=== PATIENT | female | born 1940 | race Caucasian/White ===

== ENCOUNTER → 2023-08-12 11:12 | Outpatient (REF) | payer OTHER, SELFPAY | LOC: PAVMRI 11:12 | PROVIDERS: ATTENDING PHYSICIAN Internal Medicine; REFERRING PHYSICIAN Psychiatry & Neurology Neurology | DX: M19.90 Unspecified osteoarthritis, unspecified site (principal); M25.60 Stiffness of unspecified joint, not elsewhere classified | CPT/HCPCS: 72148 ==

== ENCOUNTER → 2023-09-16 11:25 | Outpatient (REF) | payer OTHER, SELFPAY | LOC: HWWDC 11:25 | PROVIDERS: ATTENDING PHYSICIAN Internal Medicine | DX: Z12.31 Encounter for screening mammogram for malignant neoplasm of breast (principal) | CPT/HCPCS: 77063; 77067 ==

== ENCOUNTER → 2023-11-18 09:11 | Outpatient (REF) | payer OTHER, SELFPAY ==
[2023-11-18 12:44] LABS: Glycohemoglobin (HgbA1c) 6.3 % (4.0-5.6)
[2023-11-18 12:45] LABS: ALT (SGPT) 31 U/L (0-35); AST (SGOT) 32 U/L (14-36); Albumin 4.1 g/dl (3.5-5.0); Alkaline Phosphatase 116 U/L (38-126); Blood Urea Nitrogen 19 mg/dl (7-17); Calcium 9.9 mg/dl (8.4-10.2); Carbon Dioxide 25 mmol/L (22-30); Chloride 105 mmol/L (98-107); Glucose 150 mg/dl (70-99); HDL Cholesterol 43 mg/dl; LDL Cholesterol, Calculated 75 mg/dl; Potassium 3.8 mmol/L (3.5-5.1); Sodium 140 mmol/L (135-145); Total Cholesterol 145 mg/dl (50-199); Total Protein 7.1 g/dl (6.3-8.2); Triglyceride 137 mg/dl (10-149); Very Low Density Lipoprotein 27 mg/dl (0-30); eGFR > 60.00
== END ==
LOC: HWLAB 09:11
PROVIDERS: ATTENDING PHYSICIAN Internal Medicine
DX: R73.01 Impaired fasting glucose (principal); E78.5 Hyperlipidemia, unspecified; K76.0 Fatty (change of) liver, not elsewhere classified
CPT/HCPCS: 36415; 80053; 80061; 83036

== ENCOUNTER → 2024-08-06 10:03 | Outpatient (REF) | payer OTHER, SELFPAY ==
[2024-08-06 12:47] LABS: % Basophils 0.7 % (0-2); % Eosinophils 3.7 % (0-6); % Immature Granulocytes 0.3 % (0-0.5); % Lymphocytes 22.5 % (20.5-51.1); % Monocytes 9.7 % (1.7-9.3); % Neutrophils 63.1 % (42.2-75.2); Absolute Basophils 0.1 10^3/uL (0-0.2); Absolute Eosinophils 0.3 10^3/uL (0-0.7); Absolute Lymphocytes 1.7 10^3/uL (1.2-3.4); Absolute Monocytes 0.7 10^3/uL (0.1-0.6); Absolute Neutrophils 4.8 10^3/uL (1.4-6.5); Hematocrit 43.9 % (37.0-47.0); Hemoglobin 14.3 g/dL (12.0-16.0); Mean Corp Hgb Conc. 32.6 g/dL (33.0-37.0); Mean Corpuscular Hgb 28.9 pg (27.0-31.0); Mean Corpuscular Volume 88.7 fL (81.0-99.0); Mean Platelet Volume 10.4 fL (7.4-10.4); Nucleated Red Blood Cells % 0 %; Platelet Count 286 10^3/uL (130-400); Red Blood Cell Count 4.95 10^6/uL (4.20-5.40); Red Cell Dist. Width 12.6 % (11.5-14.5); White Blood Cell Count 7.6 10^3/uL (4.8-10.8)
[2024-08-06 13:13] LABS: ALT (SGPT) 45 U/L (0-35); AST (SGOT) 36 U/L (14-36); Albumin 4.2 g/dl (3.5-5.0); Alkaline Phosphatase 124 U/L (38-126); Blood Urea Nitrogen 20 mg/dl (7-17); Calcium 9.3 mg/dl (8.4-10.2); Carbon Dioxide 24 mmol/L (22-30); Chloride 105 mmol/L (98-107); Glucose 133 mg/dl (70-99); HDL Cholesterol 39 mg/dl; LDL Cholesterol, Calculated 93 mg/dl; Potassium 4.3 mmol/L (3.5-5.1); Sodium 138 mmol/L (135-145); Total Bilirubin 0.7 mg/dl (0.2-1.3); Total Cholesterol 156 mg/dl (50-199); Total Protein 6.8 g/dl (6.3-8.2); Triglyceride 123 mg/dl (10-149); Very Low Density Lipoprotein 24 mg/dl (0-30); eGFR > 60.00
[2024-08-06 14:24] LABS: Glycohemoglobin (HgbA1c) 6.6 % (4.0-5.6)
== END ==
LOC: HWLAB 10:03
PROVIDERS: ATTENDING PHYSICIAN Internal Medicine
DX: E78.5 Hyperlipidemia, unspecified (principal); K21.9 Gastro-esophageal reflux disease without esophagitis; R73.01 Impaired fasting glucose
CPT/HCPCS: 36415; 80053; 80061; 83036; 85025

== ENCOUNTER → 2024-09-16 10:02 | Outpatient (REF) | payer OTHER, SELFPAY | LOC: HWWDC 10:02 | PROVIDERS: ATTENDING PHYSICIAN Internal Medicine | DX: Z12.31 Encounter for screening mammogram for malignant neoplasm of breast (principal) | CPT/HCPCS: 77063; 77067 ==

== ENCOUNTER 2024-12-06 18:06 | Inpatient (IN) | payer OTHER, SELFPAY ==
[2024-12-06] VITALS (17 sets, daily range): BP systolic 92–154; BP diastolic 42–75; BMI 32.2
[2024-12-06 16:12] LABS: % Basophils 0.4 % (0-2); % Immature Granulocytes 1.2 % (0-0.5); % Lymphocytes 16.3 % (20.5-51.1); % Monocytes 7.7 % (1.7-9.3); % Neutrophils 73.4 % (42.2-75.2); Absolute Basophils 0.1 10^3/uL (0-0.2); Absolute Eosinophils 0.1 10^3/uL (0-0.7); Absolute Immature Granulocytes 0.2 10^3/uL (0-0.05); Absolute Lymphocytes 2.1 10^3/uL (1.2-3.4); Absolute Neutrophils 9.2 10^3/uL (1.4-6.5); Hematocrit 42.6 % (37.0-47.0); Hemoglobin 14.4 g/dL (12.0-16.0); Mean Corp Hgb Conc. 33.8 g/dL (33.0-37.0); Mean Corpuscular Hgb 30.1 pg (27.0-31.0); Mean Corpuscular Volume 88.9 fL (81.0-99.0); Mean Platelet Volume 9.8 fL (7.4-10.4); Nucleated Red Blood Cells % 0 %; Platelet Count 230 10^3/uL (130-400); Red Blood Cell Count 4.79 10^6/uL (4.20-5.40); Red Cell Dist. Width 12.6 % (11.5-14.5); White Blood Cell Count 12.6 10^3/uL (4.8-10.8)
[2024-12-06 16:33] LABS: ALT (SGPT) 46 U/L (0-35); AST (SGOT) 39 U/L (14-36); Albumin 4.2 g/dl (3.5-5.0); Alkaline Phosphatase 120 U/L (38-126); Blood Urea Nitrogen 21 mg/dl (7-17); Carbon Dioxide 24 mmol/L (22-30); Chloride 108 mmol/L (98-107); Estimated Creatinine Clearance 71 ml/min; Glucose 155 mg/dl (70-99); Potassium 4.1 mmol/L (3.5-5.1); Sodium 139 mmol/L (135-145); Total Bilirubin 0.7 mg/dl (0.2-1.3); eGFR > 60.00
[2024-12-06] MEDS: ZOFRAN 4 MG IV (17:10)
[2024-12-06] MEDS: MORPHINE SULFATE 4 MG IV (17:16)
--- NOTE | 2024-12-06 17:23 | ED.GENMED ---
History of Present Illness
General
Chief Complaint: Fall
Source: patient
Exam Limitations: none
Time Seen by Provider: 12/06/24 16:22
Nursing documentation reviewed up to this point in time: agreed with
History of Present Illness
History of Present Illness:
83-year-old female past history of hypertension hyperlipidemia presenting to the emergency department today with concerns of right hip pain after a fall from standing where she got tripped up and hit her right hip directly. Denies any her head no
loss of consciousness not on blood thinners. Denies any numbness weakness or additional concerns otherwise.
Review of Systems
Review of Systems
Allergies reviewed?: Yes
All Other Systems: ROS reviewed and negative except as documented in HPI and ROS
Phy Exam
Physical Exam
Physical Exam:
GENERAL: Alert , in no apparent distress
EYE: pupils equal and reactive
NECK: Supple, no significant adenopathy.
ENT: o/p clr, mmm.
CARDIAC: Regular rate and rhythm .
LUNGS: Clear breath sounds bilaterally, no acute respiratory distress, no wheezes/rales/rhonchi
ABDOMEN: Soft, without focal tenderness, no r/g, no cvat
NEUROLOGICAL: Alert and oriented, no focal neuro deficits
SKIN: Warm and dry, skin intact.
MUSCULOSKELETAL: Discomfort to the right hip unwilling to move at the hip able to move well at the ankle. Unwilling to bend the knee secondary to movement at the hip. No significant redness swelling or warmth, well perfused.
PSYCH: Normal and appropriate interaction.
Course
Orders/Labs/Results
Orders:
Orders
12/06/24 16:03
Type And Crossmatch [Type+Screen] Urgent
Complete Blood Count/With Diff Urgent
Comprehensive Metabolic Panel Urgent
12/06/24 16:04
Hip, Right 2-3 Views [CR Hip - RT w/wo Pel 2-3 Vw*] Urgent
Comment:
Reason For Exam: FALL, RIGHT HIP PAIN
Include a pelvis x-ray?: Yes
12/06/24 17:03
Morphine Sulfate 4 mg IV NOW STA
Ondansetron Injectable [Zofran] 4 mg IV NOW STA
12/06/24 17:21
EKG [Electrocardiogram (*1)] Urgent
Reason for Study: PreOp
12/06/24 17:23
EKG- Treatment ONCE
12/06/24 17:39
Admit/Transfer Patient As Directed
Co-Sign Provider:
Level of Care: Inpatient admission
Assign to:: Medical/Surgical
Physician / Group: Talib Meadows
Diagnosis: Right hip fracture
Reason for Hospitalization: Right hip fracture
Expected length of stay greater than two midnights?: Yes
ELOS- Estimated Length of Stay in days: 2
I certify the patient meets the requirements for IP care: Yes
PRN Pain Medication Management As Directed
May give lesser potent ordered pain med per pt: Yes
preference::
Protocol:: Medication orders for pain may be administered in a
manner that supports deferring to patient preference
when the pt is:
- Requesting an ordered lesser potent pain medication.
Least to most potent pain medications are defined
as: acetaminophen < NSAID < tramadol < opioids
(morphine, oxycodone, hydromorphone).
- Requesting a lesser dose of the same medication IF
ORDERED.
- Requesting a less intrusive route of administration
if both routes are prescribed by the provider (PO <
IV).
12/06/24 17:40
Code Status As Directed
Resuscitation Status: Full Code
Abnormal Lab Results
12/06/24
16:03
WBC 12.6 H 10^3/uL
(4.8-10.8)
Abs Immat Gran (auto) 0.2 H 10^3/uL
(0-0.05)
Absolute Neuts (auto) 9.2 H 10^3/uL
(1.4-6.5)
Absolute Monos (auto) 1.0 H 10^3/uL
(0.1-0.6)
Immature Gran % 1.2 H %
(0-0.5)
Lymphocytes % 16.3 L %
(20.5-51.1)
Chloride 108 H mmol/L
(98-107)
BUN 21 H mg/dl
(7-17)
Glucose 155 H mg/dl
(70-99)
AST 39 H U/L
(14-36)
ALT 46 H U/L
(0-35)
12/06/24 16:03
12/06/24 16:03
Vital Signs
Initial and Last Documented VS:
Initial Vital Signs
Temp Pulse Resp BP Pulse Ox
98.3 F 72 17 154/69 99
12/06/24 15:42 12/06/24 15:42 12/06/24 15:42 12/06/24 15:42 12/06/24 15:42
Last Documented Vital Signs
Temp Pulse Resp BP Pulse Ox
98.3 F 88 18 142/75 96
12/06/24 15:42 12/06/24 18:00 12/06/24 17:00 12/06/24 18:00 12/06/24 18:00
MDM/Problems Addressed
MDM/Problems Addressed:
83-year-old female presenting to the emergency department today with concerns of right hip pain after ground-level fall. Fall appears to be mechanical. Unwilling to move the right hip secondary to pain. X-ray showing hip fracture. Case was
immediately discussed with orthopedics and would like to take her to the OR directly from the ER. Otherwise workup here without emergent findings patient no distress no additional injuries no head trauma not on blood thinners.
*Critical Care Note
Total Time (30-74mins, 75-104mins- exclusive of procedures): Not Applicable
ED Attending Note
-
Portions of this chart may have been created with voice recognition software.� Occasional wrong word or��sound alike� substitutions may have occurred due to the inherent limitations of voice recognition software.
Discharge Plan
Departure
Patient Disposition: Admit
Date of Disposition: 12/06/24
Time of Disposition: 18:12
Admit to: Med/Surg
Admit to doctor: [place]
Presentation/result/management discussed w/ accepting MD/DO: Hospitalist
Patient with high blood pressure during this ER visit?: No
Condition: Good
Covid-19: Not Applicable
Discharge Problem:
Closed hip fracture
Interventions
Interventions:
*Risk Screen - Suicide Last Done: 12/06/24 15:43
*General Assessment Last Done: 12/06/24 15:43
*Neglect/Abuse Screening Last Done: 12/06/24 15:43
*ED COVID-19 Vaccine History Last Done: 12/06/24 15:43
ED-Musculoskeletal Assessment Last Done: 12/06/24 16:06
ED- Neurological Assessment Last Done: 12/06/24 16:06
ED-Skin Assessment Last Done: 12/06/24 16:06
--- NOTE | 2024-12-06 17:45 | HPS.HSE ---
Family Physician
-
Family Physician: Emily Barba
Chief Complaint
-
Mechanical fall
History of Present Illness
Patient is 83-year-old female with rest medical history of hyperlipidemia, essential hypertension came to ER after having a mechanical fall at home. Patient had a trip and fall and landed on the right side, no reported loss of consciousness.
Having significant right hip pain and ambulatory dysfunction after worsening came to ER. ER evaluation showing patient sustained a right hip fracture and patient is being planned to be admitted for further evaluation and care.
Medical History
Past Medical History
Past Medical History: Reports Other
Additional Past Medical History:
hyperlipidemia, essential hypertension
Past Surgical History: Reports Other
Social History
Tobacco: Non-smoker
Alcohol: None
Drug: None
Living: With Family
Family History
Family History: Not pertinent
Allergies / Home Medications
Allergies reflects when Allergies were last updated in [facility].
Home Medications with original date entered in [facility]
Allergy/Medication List:
Allergies
Allergy/AdvReac Type Severity Reaction Status Date / Time
codeine Allergy Nausea / Verified 12/06/24 15:58
Vomiting
iodine Allergy Rash Verified 12/06/24 15:58
oxycodone (From Percocet) Allergy Rash Verified 12/06/24 15:58
Penicillins Allergy Rash Verified 12/06/24 15:58
Sulfa (Sulfonamide Allergy Rash Verified 12/06/24 15:58
Antibiotics)
Home Medications
acetaminophen 325 mg tablet 650 mg PO Q6H PRN pain 05/27/23
atorvastatin 10 mg tablet 10 mg PO MOWEFR 05/27/23
ibuprofen 200 mg tablet (Advil) 200 mg PO Q6H PRN pain 05/27/23
losartan 50 mg tablet 50 mg PO HS 05/27/23
docusate sodium 100 mg capsule 100 mg PO DAILY 12/06/24
Review of Systems
-
A 12 point ROS was completed and negative except as noted: Yes
Physical Exam
Vital Signs
Vital Signs
Temp Pulse Resp BP Pulse Ox
98.3 F 86 18 142/69 94
12/06/24 15:42 12/06/24 17:00 12/06/24 17:00 12/06/24 17:00 12/06/24 17:00
Physical Exam
General: No Apparent Distress
HEENT: Moist mucous membranes and Atraumatic; No Oxygen
Respiratory: Clear
Cardiac: S1/S2 and Regular Rhythm; No Murmur or Rub
GI: Soft, Non Tender, Non Distended and Normal Bowel Sounds; No Organomegaly
Musculoskeletal: No Clubbing, No Cyanosis and No Edema
Skin: No Rash
Neuro: Nonfocal/grossly intact
Laboratory Results
-
12/06/24 16:03
12/06/24 16:03
Laboratory Results
Total Bilirubin 0.7 mg/dl (0.2-1.3) 12/06/24 16:03
AST 39 U/L (14-36) H 12/06/24 16:03
ALT 46 U/L (0-35) H 12/06/24 16:03
Alkaline Phosphatase 120 U/L (38-126) 12/06/24 16:03
Impression/Plan
-
1. Right hip fracture
- Hip x-ray images reviewed, official read pending showing right-side femoral neck impacted fractured
- Admit patient to [facility]
- Start on IV Dilaudid for pain control, patient allergic to codeine class of medication with allergic reaction reported rash
- Orthopedic surgery consulted by ER physician and patient plan to go to the OR today in the evening
- Maintain patient n.p.o. for now
2. Essential hypertension
- Continue home dose of losartan 50 mg at bedtime
3. Mild transaminitis
- Reported previous history of cholecystectomy
- Patient have previous minimal LFT elevation detected on outpatient lab
4. Hyperlipidemia
- Maintain on Lipitor 10 mg p.o. Saturday
5. Reactive leukocytosis
- Monitor off of antibiotics. Noted concern of active infection
DVT PPX- SCD
Full code
RCRI score of 0 with 30-day major risk of cardiac event of 3.9%. Patient risk from surgery is acceptable and benefit outweighs the risk.
Total time spent : 80 mins
I personally saw and examined the patient.
I have reviewed all diagnostic interpretations and treatment plans as written.
Time includes patient management by me, time spent at the patients bedside, time to review lab and imaging results, discussing patient care, documentation in the medical record, and time spent with the family or caregiver and discussing care plan
with RN/Consultants.
--- NOTE | 2024-12-06 18:16 | CON.ORTHO ---
Consultation
-
Date/Time Consultation Requested: 12/06/2024 @ 18:13
Date/Time Consultation Performed: 12/06/2024 @ 18:16
Requesting Provider: Talib Meadows MD
Performing Provider: Deshawn Arroyo PA-C and Dr. Tony Draper MD
Reason for Consultation: Right Hip Fx
Consultation - Orthopedics
History
Orthopedic Surgery Note
CC: Right Hip Pain s/p mechanical fall earlier today.
HPI: The patient is an 83-year-old female with a past medical history significant for Hypertension and Hypercholesterolemia who presents to [facility] ED this evening after sustaining a mechanical fall earlier today. She reports that she
fell onto her right hip. X-rays were obtained in the emergency department and revealed a displaced right femoral neck fracture. Orthopedic surgery was consulted for management and treatment recommendations moving forward. She denies any
paresthesias. She lives alone in a condo.
PMH/PSH: Hypertension and Hypercholesterolemia.
Medications: Reviewed.
Allergies (Discussed with patient): Codeine: Nausea. Iodine: GI upset. Oxycodone: Rash & GI upset. Penicillin: Rash. Sulfa: Rash.
Family History: Family history was reviewed. Noncontributory.
Social history: Nonsmoker, no illicit drugs
Exam
General appearance: Pleasant. No acute distress.
Head: Normocephalic/atraumatic
Nose: No lesions or discharge.
Skin: No obvious rashes or open wounds
Lungs: No audible wheezing, no cough or sputum production
Musculoskeletal:
Direct exam of the right lower extremity reveals leg shortened and externally rotated. (+) Tenderness to palpation about the right hip. Compartments are soft and compressible. (+) logroll. Calf is soft and nontender to palpation. Able to
plantarflex and dorsiflex right ankle. NVI distally.
Imaging:
Plain radiographs of the right hip, including AP pelvis view, and AP and frog views was obtained at [facility] on 12/06/2024 was made available for my review today. My independent radiographic interpretation, there is a displaced right
femoral neck fracture.
Assessment: 83-year-old female with a RIGHT femoral neck fracture.
Plan: Unfortunately, the patient sustained a right hip fracture. We discussed the treatment options, and after thorough discussion, shared decision was to proceed with a RIGHT hip bipolar endoprosthesis. The risks, benefits, potential
complications, and expected post-operative course were reviewed. Will plan to proceed to the OR this evening 12/06/2024 under the direction of Dr. Draper. Surgical and blood consents obtained and scanned into the patient chart. Ancef, iodine
irrigation, and TXA irrigation on-call to the OR. Patient to remain NPO. Remain NWB to RLE until postop. Hemoglobin 14.4. Type and screen requested. Right hip marked as the correct surgical extremity. Orthopedic surgery will continue to follow
along.
Patient seen and evaluated in tandem with Dr. Tony Draper MD
Allergies / Home Medications
Allergy/AdvReac Type Severity Reaction Status Date / Time
codeine Allergy Nausea / Verified 12/06/24 15:58
Vomiting
iodine Allergy Rash Verified 12/06/24 15:58
oxycodone (From Percocet) Allergy Rash Verified 12/06/24 15:58
Penicillins Allergy Rash Verified 12/06/24 15:58
Sulfa (Sulfonamide Allergy Rash Verified 12/06/24 15:58
Antibiotics)
�Medication �Instructions �Recorded
acetaminophen 325 mg tablet 650 mg PO Q6H PRN pain 05/27/23
atorvastatin 10 mg tablet 10 mg PO MOWEFR 05/27/23
ibuprofen 200 mg tablet (Advil) 200 mg PO Q6H PRN pain 05/27/23
losartan 50 mg tablet 50 mg PO HS 05/27/23
docusate sodium 100 mg capsule 100 mg PO DAILY 12/06/24
Vital Signs / Lab Results
Temp Pulse Resp BP Pulse Ox
98.3 F 88 18 142/75 96
12/06/24 15:42 12/06/24 18:00 12/06/24 17:00 12/06/24 18:00 12/06/24 18:00
12/06/24 16:03
12/06/24 16:03
[2024-12-06] MEDS: MORPHINE SULFATE 2 MG IV (18:42)
[2024-12-06] MEDS: SENOKOT 17.2 MG PO (22:28)
[2024-12-06] MEDS: TYLENOL 650 MG PO (22:29)
[2024-12-06] MEDS: COLACE 100 MG PO (22:29)
[2024-12-06] MEDS: ASPIRIN 325 MG PO (22:29)
[2024-12-06] MEDS: COZAAR 50 MG PO (22:31)
[2024-12-06] MEDS: DILAUDID 0.25 MG IV (22:32)
[2024-12-06] MEDS: NSS 1000 IV (22:34)
[2024-12-07] VITALS (8 sets, daily range): BP systolic 108–145; BP diastolic 50–98; PULSE 69–74; O2SAT 96–97
[2024-12-07] MEDS: TYLENOL PO (02:26)
[2024-12-07] MEDS: TYLENOL 650 MG PO ×5 (04:02→20:22)
[2024-12-07] MEDS: ANCEF 5 IV ×2 (04:02→12:43)
[2024-12-07] MEDS: DILAUDID 0.25 MG IV (04:11)
--- NOTE | 2024-12-07 05:30 | W.PN.ORTHO ---
Today's Communication / Plan
-
Appreciate the primary team with her management, continue Tx
Dispo ?SNF? or per CM, appreciate their efforts
Continue WBAT B/L LEs on assistive device
PT/OT, THPs x 6 weeks
Pain control
ASA 325mg daily x 4 weeks for DVT ppx, or per primary
Dressings to remain 7-10 days
[place] out 2 weeks (SNF or office)
If chiki out at SNF outpatient Ortho follow-up in 4 weeks
Assessment
.
Distal Motor Intact: Yes
Dressing:
Dry and intact. Dressing in place right hip. Minimal strikethrough centrally, contained
Assessment:
POD#1 Right hip Darrin
Calf soft, nontender
Plan
.
Surgery / Date: Right hip Darrin/December 30 ([facility])
DVT Prophylaxis: Aspirin (325mg)
Activity:
Out of bed. WBAT B/L LEs on walker
PT/OT, THPs x 6 weeks
Discharge Plan: SNF (or per , appreciated)
Subjective
.
.:
Patient resting comfortably this AM. No significant pain right hip
Vital Signs and Labs
.
Vital Signs and Labs:
Temp Pulse Resp BP Pulse Ox
97.6 F 66 16 108/58 94
12/07/24 03:00 12/07/24 03:00 12/07/24 03:00 12/07/24 03:00 12/07/24 03:00
[2024-12-07 07:23] LABS: Hematocrit 40.3 % (37.0-47.0); Hemoglobin 13.4 g/dL (12.0-16.0)
[2024-12-07] MEDS: SENOKOT 17.2 MG PO (08:17)
[2024-12-07] MEDS: COLACE 100 MG PO (08:17)
[2024-12-07] MEDS: LIPITOR 10 MG PO (08:17)
[2024-12-07 08:19] LABS: Blood Urea Nitrogen 20 mg/dl (7-17); Calcium 8.4 mg/dl (8.4-10.2); Carbon Dioxide 23 mmol/L (22-30); Chloride 106 mmol/L (98-107); Estimated Creatinine Clearance 71 ml/min; Glucose 187 mg/dl (70-99); Potassium 4.5 mmol/L (3.5-5.1); Sodium 139 mmol/L (135-145); eGFR > 60.00
[2024-12-07] MEDS: ULTRAM 50 MG PO ×2 (10:11→21:50)
[2024-12-07] MEDS: NSS IV (10:15)
--- NOTE | 2024-12-07 10:46 | CM ---
Addendum entered by Shahrzad Moser RN 12/08/24 07:42:
[facility]
Report
[phone]

Addendum entered by Shahrzad Moser RN 12/07/24 15:31:
Patient has been approved for [facility]
IBC authorization
[id number]
12/08-12/11
[facility]ute Care [facility] Authorization
12/08
[id number]
Addendum entered by Shahrzad Moser RN 12/07/24 10:51:
Patient has been known to [facility].
Original Note:
Cm reviewed medical records. Patient confirmed demographics. Patient lives indepedently. Patient reports that her family is going to be away on vacation and she will not have any support on return home. Patient is anxious about her ability to
ambulate at night to use the bathroom. [facility] would be agreeable to [facility], [facility], or [facility]. CM sent referral via [facility]. Cm is awaiting acceptance.
PLAN: SNF
--- NOTE | 2024-12-07 14:11 | W.PN.HOSP.TC ---
Today's Communication/Plan
-
dc planning to SNF
Assessment / Plan
Assessment / Plan
Assessment:
Mechanical fall
Acute angulated right hip fracture s/p Right hip Hemiarthroplasty 12/06/24
- WBAT B/L LEs
- PT/OT
- pain control
- ASA for DVT ppx
- OP Ortho f/u
Essential HTN
- continue home dose of losartan 50 mg at bedtime
Mild transaminitis
- Reported previous history of cholecystectomy
- Patient have previous minimal LFT elevation detected on outpatient lab
Hyperlipidemia
- Maintain on Lipitor 10 mg p.o. Saturday
Reactive leukocytosis
- Monitor off of antibiotics. Noted concern of active infection
DVT ppx: SCDs
Code: Full
Anticipated Discharge: Within 24 hours
Subjective/Interval History
-
Date of Service: December 07, 2024
resting comfortably, no complaints at present
Objective Data
-
Labs:
Laboratory Results
12/07/24
06:37
Hgb 13.4
Hct 40.3
Sodium 139
Potassium 4.5
Chloride 106
Carbon Dioxide 23
BUN 20 H
Creatinine 0.7
Glucose 187 H
Calcium 8.4
Vital Signs:
Vital Signs
Temp Pulse Resp BP Pulse Ox
98.8 F 72 18 116/50 89
12/07/24 11:25 12/07/24 11:25 12/07/24 11:25 12/07/24 11:25 12/07/24 11:25
I&O
12/06/24 12/07/24 12/08/24
06:59 06:59 06:59
Intake Total 630 / 630 420 / 420
Output Total 600 / 600
Balance 30 / 30 420 / 420
Physical Exam
-
General: No Apparent Distress
HEENT: Normocephalic and Atraumatic
Respiratory: Negative Wheezes
Cardiac: Regular Rhythm and S1/S2
GI: Soft and Nontender
Genito-urinary: No Costovertebral Tender
Neuro: AO x 3
Psych: Calm
Data Reviewed
-
Total Time Spent with Patient (in minutes): 42
Labs: Labs Reviewed by me
[2024-12-07] MEDS: ASPIRIN 325 MG PO (17:13)
[2024-12-07] MEDS: COLACE PO (19:31)
[2024-12-07] MEDS: SENOKOT PO (19:31)
[2024-12-07] MEDS: COZAAR 50 MG PO (20:21)
[2024-12-08] MEDS: TYLENOL PO ×2 (00:51→04:20)
[2024-12-08 03:00] VITALS: BP 109/45
--- NOTE | 2024-12-08 05:56 | W.PN.ORTHO ---
Today's Communication / Plan
-
83-year-old female POD #2 Right Hip Bipolar Endoprosthesis 12/06/2024 under the direction of Dr. Draper.
- Appreciate the primary team with her management, continue Tx.
- Dispo likely SNF ([facility]), appreciate CM.
- Continue WBAT B/L LEs on assistive device.
- PT/OT, THPs x 6 weeks.
- Pain control per primary team.
- ASA 325mg daily x 4 weeks for DVT ppx.
- Hgb this AM pending. Yesterday, 13.4. Continue to monitor and trend.
- Dressings to remain intact 7-10 days.
- [place] out 2 weeks (SNF or office).
- If chiki out at [facility], outpatient Ortho follow-up in 4 weeks.
- Orthopedic surgery will sign off at this time. Please reengage with any further questions or concerns. D/C information updated.
Assessment
.
Distal Motor Intact: Yes
Dressing:
Primaseal dressing intact to right hip. Minimal strikethrough centrally, contained.
Assessment:
POD#1 Right Hip Bipolar Endoprosthesis
Calf soft, nontender
Plan
.
Surgery / Date: Right hip Darrin/December 30 ([facility])
DVT Prophylaxis: Aspirin
Activity:
Out of bed. WBAT B/L LEs on walker.
PT/OT, THPs x 6 weeks.
Discharge Plan: SNF and Other
Discharge Information:
Appreciate CM.
Subjective
.
.:
Patient resting comfortably.
Vital Signs and Labs
.
Vital Signs and Labs:
Temp Pulse Resp BP Pulse Ox
97.8 F 69 18 109/45 95
12/08/24 03:00 12/08/24 03:00 12/08/24 03:00 12/08/24 03:00 06/03/25 03:00
Non-invasive Hgb result: 11.8
[2024-12-08] MEDS: ULTRAM 50 MG PO (06:25)
[2024-12-08 06:53] VITALS: BP 131/63
[2024-12-08 07:19] LABS: Hematocrit 38.1 % (37.0-47.0); Hemoglobin 12.4 g/dL (12.0-16.0); Mean Corp Hgb Conc. 32.5 g/dL (33.0-37.0); Mean Corpuscular Hgb 29.8 pg (27.0-31.0); Mean Corpuscular Volume 91.6 fL (81.0-99.0); Mean Platelet Volume 10.4 fL (7.4-10.4); Platelet Count 208 10^3/uL (130-400); Red Blood Cell Count 4.16 10^6/uL (4.20-5.40); Red Cell Dist. Width 12.9 % (11.5-14.5); White Blood Cell Count 14.6 10^3/uL (4.8-10.8)
[2024-12-08 07:47] LABS: Blood Urea Nitrogen 32 mg/dl (7-17); Calcium 8.5 mg/dl (8.4-10.2); Carbon Dioxide 26 mmol/L (22-30); Chloride 107 mmol/L (98-107); Estimated Creatinine Clearance 63 ml/min; Glucose 122 mg/dl (70-99); Potassium 4.3 mmol/L (3.5-5.1); Sodium 140 mmol/L (135-145); eGFR > 60.00
[2024-12-08] MEDS: COLACE 100 MG PO (08:22)
[2024-12-08] MEDS: TYLENOL 650 MG PO ×2 (08:22→12:16)
[2024-12-08] MEDS: SENOKOT PO (08:23)
--- NOTE | 2024-12-08 09:49 | CM ---
CM following re: discharge planning.
Reviewed pt's chart, met with [pt.
According to MD pt is medically stable to be discharged today. Pt is aware, expressed her agreement. IMM reviewed, placed on chart, pt has a copy.
Pt stated she is aware she will go to [facility] for a short term rehab
CM spoke to [facility] director china and she confirm they do have a bed available and pt is accepted for admission today. [facility] has auth information.
IBC authorization
[id number]
12/08-12/11
to arrange ambulance transport [facility] . [facility] Authorization:[id number]
[facility] Nursing Report:[phone]
Discharge instructions fax: [phone]
D/C plan: [facility] today.
--- NOTE | 2024-12-08 11:30 | W.PN.HOSP.TC ---
Today's Communication/Plan
-
dc to SNF
Assessment / Plan
Assessment / Plan
Assessment:
Mechanical fall
Acute angulated right hip fracture s/p Right hip Hemiarthroplasty 12/06/24
- WBAT B/L LEs
- PT/OT
- pain control
- ASA for DVT ppx
- OP Ortho f/u
Essential HTN
- continue home dose of losartan 50 mg at bedtime
Mild transaminitis
- Reported previous history of cholecystectomy
- Patient have previous minimal LFT elevation detected on outpatient lab
Hyperlipidemia
- Maintain on Lipitor 10 mg p.o. Saturday
Reactive leukocytosis
- Monitor off of antibiotics. Noted concern of active infection
DVT ppx: SCDs
Code: Full
More than 30 minutes spent in discharge including
Final examination of the patient
Summarizing hospital stay
Instructions for continuing care to all relevant caregivers
Preparation of discharge records, prescriptions, and referral forms
Total time spent (in minutes): 41
Anticipated Discharge: Today
Subjective/Interval History
-
Date of Service: December 08, 2024
resting comfortably, no new complaints
Objective Data
-
Labs:
Laboratory Results
12/08/24
06:51
WBC 14.6 H
Hgb 12.4
Hct 38.1
Plt Count 208
Sodium 140
Potassium 4.3
Chloride 107
Carbon Dioxide 26
BUN 32 H
Creatinine 0.8
Glucose 122 H
Calcium 8.5
Vital Signs:
Vital Signs
Temp Pulse Resp BP Pulse Ox
97.9 F 75 16 131/63 98
12/08/24 06:53 12/08/24 06:53 12/08/24 06:53 12/08/24 06:53 12/08/24 06:53
I&O
12/07/24 12/08/24 12/09/24
06:59 06:59 06:59
Intake Total 630 / 630 860 / 860
Output Total 600 / 600
Balance 30 / 30 860 / 860
Physical Exam
-
General: No Apparent Distress
HEENT: Normocephalic and Atraumatic
Respiratory: Negative Wheezes
Cardiac: Regular Rhythm and S1/S2
GI: Soft and Nontender
Musculoskeletal: No Edema
Neuro: AO x 3
Hematologic / Lymphatic: No Lymphadenopathy
Psych: Calm
Data Reviewed
-
Total Time Spent with Patient (in minutes): 42
Labs: Labs Reviewed by me
--- NOTE | 2024-12-08 11:38 | W.DS.TRANS ---
DC Summary - Claim Attorney
-
Discharge Instructions:
Discharge Diagnosis/Procedures fall with Acute angulated right hip fracture s/p
Right hip Hemiarthroplasty 12/06/24
Diet Low Cholesterol
Activity Other activity
Additional Activity WBAT B/L LEs
Other Services PT,OT
Instructions:
Stand-Alone Forms:
Changes to Home Medications: No
Discharge Medications:
DC Medications w/original date entered in [facility]
atorvastatin 10 mg tablet 10 mg PO MOWEFR High Cholesterol 05/27/23
losartan 50 mg tablet 50 mg PO HS Blood Pressure 05/27/23
docusate sodium 100 mg capsule 100 mg PO DAILY Constipation 12/06/24
acetaminophen 325 mg tablet 650 mg (2 x 325 mg) PO Q6H PRN pain #100 tabs 12/08/24
aspirin 325 mg tablet 325 mg PO DAILY@1800 #30 tabs 12/08/24
tramadol 50 mg tablet 50 mg PO Q6HPRN PRN mild pain #20 tabs 12/08/24
Home Medication Changes
Pending Results: No
Total time spent discharging patient (in min): 41
[2024-12-08 12:20] VITALS: BP 109/75
== END 2024-12-08 12:38 | DRG 522 ==
LOC: 2 SOUTH 18:06
PROVIDERS: Student in an Organized Health Care Education/Training Program; ADMITTING PHYSICIAN Hospitalist; ATTENDING PHYSICIAN Internal Medicine; CONSULT PHYSICIAN Specialist; EMERGENCY PHYSICIAN Student in an Organized Health Care Education/Training Program; FAMILY PHYSICIAN Internal Medicine
PROC: 0SRR0J9 Replacement of Right Hip Joint, Femoral Surface with Synthetic Substitute, Cemented, Open Approach (ICD-10-PCS; 2024-12-06)
DX: S72.001A Fracture of unspecified part of neck of right femur, initial encounter for closed fracture (principal); I10 Essential (primary) hypertension; D72.829 Elevated white blood cell count, unspecified; R74.01 Elevation of levels of liver transaminase levels; E78.00 Pure hypercholesterolemia, unspecified; W01.0XXA Fall on same level from slipping, tripping and stumbling without subsequent striking against object, initial encounter; Y93.9 Activity, unspecified; Y92.009 Unspecified place in unspecified non-institutional (private) residence as the place of occurrence of the external cause; Z60.2 Problems related to living alone; Z88.5 Allergy status to narcotic agent; Z88.0 Allergy status to penicillin; Z88.2 Allergy status to sulfonamides; Z91.041 Radiographic dye allergy status; Z90.49 Acquired absence of other specified parts of digestive tract
CPT/HCPCS: 73502; 80048; 80053; 85014; 85018; 85025; 85027; 86850; 86900; 86901; 93005; 96374; 96375; 96376; 97163; 97167; 99285

== ENCOUNTER → 2024-12-11 11:18 | Outpatient (REF) | payer BC, OTHER, SELFPAY ==
[2024-12-11 12:30] LABS: % Basophils 0.5 % (0-2); % Eosinophils 5.8 % (0-6); % Immature Granulocytes 0.9 % (0-0.5); % Lymphocytes 22.8 % (20.5-51.1); % Monocytes 11.8 % (1.7-9.3); % Neutrophils 58.2 % (42.2-75.2); Absolute Basophils 0.1 10^3/uL (0-0.2); Absolute Eosinophils 0.7 10^3/uL (0-0.7); Absolute Immature Granulocytes 0.1 10^3/uL (0-0.05); Absolute Lymphocytes 2.6 10^3/uL (1.2-3.4); Absolute Monocytes 1.3 10^3/uL (0.1-0.6); Absolute Neutrophils 6.5 10^3/uL (1.4-6.5); Hematocrit 34.1 % (37.0-47.0); Hemoglobin 11.5 g/dL (12.0-16.0); Mean Corp Hgb Conc. 33.7 g/dL (33.0-37.0); Mean Corpuscular Hgb 30.3 pg (27.0-31.0); Mean Platelet Volume 10.6 fL (7.4-10.4); Nucleated Red Blood Cells % 0 %; Platelet Count 264 10^3/uL (130-400); Red Blood Cell Count 3.79 10^6/uL (4.20-5.40); Red Cell Dist. Width 12.8 % (11.5-14.5); White Blood Cell Count 11.2 10^3/uL (4.8-10.8)
[2024-12-11 13:19] LABS: Blood Urea Nitrogen 22 mg/dl (7-17); Calcium 8.5 mg/dl (8.4-10.2); Carbon Dioxide 26 mmol/L (22-30); Chloride 107 mmol/L (98-107); Glucose 122 mg/dl (70-99); Potassium 3.9 mmol/L (3.5-5.1); Sodium 138 mmol/L (135-145); eGFR > 60.00
== END ==
LOC: OLABP 11:18
PROVIDERS: ATTENDING PHYSICIAN Family Medicine
DX: S72.001D Fracture of unspecified part of neck of right femur, subsequent encounter for closed fracture with routine healing (principal); I10 Essential (primary) hypertension; E78.5 Hyperlipidemia, unspecified; R74.01 Elevation of levels of liver transaminase levels
CPT/HCPCS: 36415; 80048; 85025

== ENCOUNTER → 2025-02-09 09:16 | Outpatient (REF) | payer OTHER, SELFPAY ==
[2025-02-09 12:33] LABS: Glycohemoglobin (HgbA1c) 6.2 % (4.0-5.6)
[2025-02-09 12:43] LABS: Microalbumin, Random Urine 1.6 mg/dl (0.6-1.7)
[2025-02-09 12:46] LABS: ALT (SGPT) 28 U/L (0-35); AST (SGOT) 24 U/L (14-36); Albumin 4.0 g/dl (3.5-5.0); Alkaline Phosphatase 111 U/L (38-126); Blood Urea Nitrogen 20 mg/dl (7-17); Calcium 9.6 mg/dl (8.4-10.2); Carbon Dioxide 25 mmol/L (22-30); Chloride 109 mmol/L (98-107); Glucose 132 mg/dl (70-99); Potassium 4.3 mmol/L (3.5-5.1); Sodium 141 mmol/L (135-145); Total Protein 7.0 g/dl (6.3-8.2); Very Low Density Lipoprotein 18 mg/dl (0-30); eGFR > 60.00
[2025-02-09 12:48] LABS: Microalb - Urine Creatinine 109.900 mg/dl
[2025-02-09 12:53] LABS: HDL Cholesterol 41 mg/dl; LDL Cholesterol, Calculated 94 mg/dl
== END ==
LOC: HWLAB 09:16
PROVIDERS: ATTENDING PHYSICIAN Internal Medicine
DX: E11.9 Type 2 diabetes mellitus without complications (principal); E78.5 Hyperlipidemia, unspecified
CPT/HCPCS: 36415; 80053; 80061; 82043; 82570; 83036

== ENCOUNTER → 2025-06-02 11:10 | Outpatient (REF) | payer OTHER, SELFPAY ==
[2025-06-02 12:07] LABS: Urine Character Slightly Cloudy (Clear)
[2025-06-02 12:28] LABS: Urine Red Blood Cell >100 /HPF (0-2)
== END ==
LOC: REG 11:10
PROVIDERS: ATTENDING PHYSICIAN Obstetrics & Gynecology; FAMILY PHYSICIAN Internal Medicine
DX: N30.90 Cystitis, unspecified without hematuria (principal)
CPT/HCPCS: 81003; 81015; 87086

== ENCOUNTER → 2025-06-14 13:09 | Outpatient (REF) | payer OTHER, SELFPAY ==
[2025-06-14 14:23] LABS: Blood Urea Nitrogen 17 mg/dl (7-17); Calcium 9.5 mg/dl (8.4-10.2); Carbon Dioxide 26 mmol/L (22-30); Chloride 103 mmol/L (98-107); Glucose 105 mg/dl (70-99); Potassium 4.1 mmol/L (3.5-5.1); Sodium 137 mmol/L (135-145); eGFR > 60.00
== END ==
LOC: REG 13:09
PROVIDERS: ATTENDING PHYSICIAN Obstetrics & Gynecology; FAMILY PHYSICIAN Internal Medicine
DX: Z01.818 Encounter for other preprocedural examination (principal)
CPT/HCPCS: 80048

== ENCOUNTER → 2025-06-22 14:22 | Outpatient (REF) | payer OTHER, SELFPAY | LOC: RAD 14:22 | PROVIDERS: ATTENDING PHYSICIAN Specialist; FAMILY PHYSICIAN Internal Medicine | DX: R31.0 Gross hematuria (principal) | CPT/HCPCS: 74178; Q9967 ==